=== PATIENT | female | born 1990 | race Caucasian/White ===

== ENCOUNTER 2017-04-17 17:42 | Emergency (ER) | payer OTHER ==
[~2017-04-17] VITALS: Ht 167.6 cm; Wt 76.3 kg
[~2017-04-17 17:42] MED LIST: ACID1TAB7 PO; CLIN300C93 PO; DOXY150T PO; IBUP-1222 PO; OXYC-302 PO; PREN1TAB52 PO
[2017-04-17 18:25] LABS: BLOOD UREA NITROGEN 11 mg/dL (7-18)
[2017-04-17 18:59] VITALS: BP 123/86
== END 2017-04-17 20:34 | disposition home or self-care (01) ==
LOC: ED 18:30
DX: N61.0 Mastitis without abscess (principal)
CPT/HCPCS: 36415; 76641; 80048; 83605; 85025

== ENCOUNTER → 2017-10-14 | Outpatient (CLI) | payer OTHER ==
[~2017-10-14] MED LIST changes: +CLIN300C8 PO; -CLIN300C93 PO
== END | disposition home or self-care (01) ==
LOC: LAB 16:55
PROVIDERS: ATTEND Physician Assistant
DX: F41.9 Anxiety disorder, unspecified (principal)
CPT/HCPCS: 36415; 84439; 84443; 84479